=== PATIENT | male | born 1970 | race Two or more races ===

== ENCOUNTER 2021-02-25 01:13 | Emergency (ER) | payer BC ==
[~2021-02-25] VITALS: Ht 167.6 cm; Wt 100.0 kg
[2021-02-25 01:27] VITALS: BP 146/80
[2021-02-25] MEDS ORDERED: ONDANSETRON 4MG ODT PO STA (02:54)
[2021-02-25] MEDS ORDERED: VISCOUS LIDOCAINE 2% 15 ML UDC PO STA (02:54)
[2021-02-25] MEDS ORDERED: MAGNESIUM/ALUMINUM HYDROXIDE/SIMETHICONE 30ML UDC PO STA (02:54)
[2021-02-25 03:30] LABS: BASOPHILS % 0.6 % (0.0-2.0); EOSINOPHILS % 0.4 % (0.0-5.0); HEMATOCRIT. 40.2 % (42.0-52.0); HEMOGLOBIN. 12.6 g/dL (14.0-18.0); LYMPHOCYTES % 18.5 % (20.0-50.0); MEAN CORPUSCULAR HEMOGLOBIN 20.5 pg (28.0-32.0); MEAN CORPUSCULAR VOLUME 65.4 fL (80.0-94.0); MEAN PLATELET VOLUME 8.6 fl (7.4-10.4); MONOCYTES % 8.8 % (2.0-8.0); NEUTROPHILS % 71.7 % (40.0-76.0); PLATELET 206 x1000/uL (130-400); RED BLOOD CELL COUNT 6.14 mill/uL (4.7-6.1); RED CELL DISTRIBUTION WIDTH 16.7 % (11.6-14.6)
[2021-02-25 03:32] LABS: CHLORIDE 108 mEq/L (98-107)
[2021-02-25 03:39] LABS: CLARITY URINE CLEAR (CLEAR); COLOR URINE YELLOW (YELLOW); KETONES URINE NEGATIVE (NEGATIVE); LEUKOCYTE ESTERASE URINE NEGATIVE (NEGATIVE); NITRITE URINE NEGATIVE (NEGATIVE); OCCULT BLOOD URINE NEGATIVE (NEGATIVE); PH URINE 6.5 (4.5-8.0); PROTEIN URINE NEGATIVE (NEGATIVE); SPECIFIC GRAVITY URINE 1.016 (1.005-1.030)
[2021-02-25] MEDS ORDERED: ONDA4TAB5 MT (04:18)
[2021-02-25] MEDS ORDERED: HYDR-4001 MT (04:18)
[2021-02-25 06:57] LABS: PLATELET ESTIMATE NORMAL
== END 2021-02-25 05:05 | disposition home or self-care (01) ==
LOC: ER 01:13
DX: K85.90 Acute pancreatitis without necrosis or infection, unspecified (principal); K29.70 Gastritis, unspecified, without bleeding
CPT/HCPCS: 36415; 80053; 81003; 83690; 85025; 99284; Q0162